=== PATIENT | male | born 1955 | race Caucasian/White ===

== ENCOUNTER 2017-06-09 06:05 | Day surgery (SDC) | payer BC ==
--- NOTE | 2017-05-26 08:06 | HP ---
PREOPERATIVE HISTORY AND PHYSICAL: DATE OF ADMISSION: 06/09/17 ATTENDING PHYSICIAN: Dr. Welsh * (DICTATED BY KEYSHA CRUZ) CHIEF COMPLAINT: Left forefoot pain. HISTORY OF PRESENT ILLNESS: Mr. Yung is a 62-year-old gentleman who is quite active, who has been followed by Dr. Welsh for left first MTP joint pain. He states that he has been followed by Podiatry who has tried orthotics with the patient which did not seem to relieve his pain. He has had no history of gout. He just had progressively worsening pain and stiffness in this area. He elects to proceed with MTP joint fusion at this point. PAST MEDICAL HISTORY: Vertigo. PAST SURGICAL HISTORY: Cholecystectomy, laminectomy, two left knee arthroscopies, one right knee reconstruction, tonsillectomy, right wrist surgery x2 and right shoulder distal clavicle excision. He does report nausea with anesthesia. CURRENT MEDICATIONS: 1. Meclizine 25 mg one half to 1 tab p.o. t.i.d. p.r.n. 2. Patanol 0.1% drops 1 to 2 drops in each eye every day 1 to 2 times as needed. 3. Fish oil 1000 mg 3 tabs daily. 4. Aspirin 325 mg as needed for pain. 5. Vitamin D 5000 units 1 p.o. daily. 6. 500 mg 2 tabs p.o. daily. 7. Aciphex 20 mg 1 p.o. daily p.r.n. 8. Voltaren p.r.n. 9. Milk thistle supplement. 10. L-arginine supplement. ALLERGIES: No known drug allergies. FAMILY HISTORY: Positive for heart disease in his father, hypertension in his father. SOCIAL HISTORY: He lives with his spouse. 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 He has never smoked. He consumes an average of 3 alcoholic beverages per week. He exercises rarely. REVIEW OF SYSTEMS: Constitutional: Negative for recent hospitalizations, fevers, chills, night sweats, or unexplained weight loss. Head: Negative for headache, lightheadedness, or balance problems, changes to his vision or hearing , sore throat, runny nose, cough or cold. Cardiovascular: Negative for chest or arm pain with exertion, history of heart attack, heart murmur, heart palpitations, high blood pressure, embolism or deep vein thrombosis. Respiratory: Negative for chronic cough, shortness of breath with exertion, asthma, or COPD. Gastrointestinal: Negative for heartburn, nausea, vomiting, diarrhea, constipation, or GERD. Genitourinary: Negative for nighttime urination, frequency of urination, urinary tract infections, or kidney problems. Musculoskeletal: Negative for chronic back pain or recent fracture. Skin: Negative for rashes, lesions, lumps, or sores. Neurologic: Negative for seizure, stroke, epilepsy, depression, or anxiety. Endocrine: Negative for diabetes or thyroid problems. Hematology: Negative for easy bleeding, bruising, or anemia. PHYSICAL EXAMINATION GENERAL: He is a well-developed, well-nourished pleasant male in no acute distress at rest. He is alert and oriented x3 with appropriate mood and affect. VITAL SIGNS: The patient is 5 feet 10 inches, 215 pounds. Blood pressure 126/ 70, pulse of 72, respirations 18, temperature 98.3. HEENT: Normocephalic, atraumatic. His hearing and vision are grossly intact. NECK: His trachea is midline. RESPIRATORY: Lungs are clear to auscultation bilaterally. No wheezes, rales, or rhonchi. CARDIOVASCULAR: Regular rate and rhythm. No murmurs, rubs, or gallops. Normal S1, S2. ABDOMEN: Soft, nondistended, nontender. Normal bowel sounds. EXTREMITIES: Exam of the left lower extremity, skin is intact without abrasions or open wounds. He has normal hind foot alignment. He has a mild hallux valgus. He has very limited range of motion of the first MTP joint with about 15 degrees of dorsiflexion and diffuse tenderness throughout the joint. Sensation to light touch is intact. He has a normal vascular exam. IMAGING: Three views of the left foot were reviewed and show end-stage arthritic changes to the left first MTP joint. IMPRESSION: Left foot hallux rigidus. PLAN: The patient is to undergo left foot first metatarsophalangeal joint fusion by Dr. Welsh on 06/09/17. The risks, benefits, and postoperative course were discussed with the patient at length and he would like to proceed. A prescription for oxycodone was sent to his pharmacy for postoperative pain. All of his questions were answered to his full satisfaction. KEYSHA CRUZ [id number]/[facility] #: [id number] [place]
[~2017-06-09 06:05] MED LIST: Buffered Lidocaine 0.9% SYRIN* 5 ML/SYR SYRINGE INTRADERM ONE; Metoclopramide TAB* 10 MG PO ONE
[2017-06-09] MEDS ORDERED: Buffered Lidocaine 0.9% SYRIN* 5 ML/SYR SYRINGE ONE (06:32)
[2017-06-09] MEDS ORDERED: Metoclopramide TAB* 10 MG ONE (06:32)
[2017-06-09] MEDS ORDERED: ceFAZolin 2 GM PREMIX (*) 2 GM/50 ML BAG IVPB ONE (06:32)
[2017-06-09] MEDS ORDERED: Dexamethasone IV* 4 MG/ML 1 ML (4 MG) ONE (07:10)
[2017-06-09] MEDS ORDERED: Ondansetron INJ* 2 MG/ML VIAL ONE ×2 (07:10→10:30)
[2017-06-09] MEDS ORDERED: Ketorolac INJ* 30 MG/ML 1 ML VIAL ONE (07:10)
[2017-06-09] MEDS ORDERED: Propofol* 10 MG/ML 20 ML BTL IV PUSH ONE ×2 (07:10→08:05)
[2017-06-09] MEDS ORDERED: Midazolam* 1 MG/ML 10 ML VIAL (10 MG) ONE (07:10)
[2017-06-09] MEDS ORDERED: fentaNYL* 50 MCG/ML 2 ML VIAL (100 MCG VIAL) ONE (07:10)
[2017-06-09] MEDS ORDERED: Lidocaine 2% PF * 5 ML VIAL ONE ×2 (07:10→07:15)
[2017-06-09] MEDS ORDERED: KETAMINE HCL* 50 MG/ML 10 ML VIAL ONE (07:10)
[2017-06-09] MEDS ORDERED: Bupivacaine 0.5% SDV PF* 30 ML VIAL ONE (07:11)
[2017-06-09] MEDS ORDERED: Lidocaine 2% W/EPI 1:100,000* 20 ML MDV ONE (07:11)
[2017-06-09] MEDS ORDERED: Famotidine IV* 10 MG/ML 2 ML (20 mg) IV SLOW PU ONE (07:21)
[2017-06-09] MEDS ORDERED: Famotidine IV* 10 MG/ML 2 ML (20 mg) ONE (07:22)
[2017-06-09] MEDS ORDERED: Ondansetron INJ* 2 MG/ML VIAL IV PRN (07:22)
[2017-06-09] MEDS ORDERED: fentaNYL* 50 MCG/ML 2 ML VIAL (100 MCG VIAL) IV PRN (07:22)
[2017-06-09] MEDS ORDERED: Labetalol IV* 5 MG/ML 20 ML VIAL ONE (08:44)
[2017-06-09] MEDS ORDERED: oxyCODONE/Acetamin 5/325 MG* TAB ONE ×2 (09:57→09:58)
[2017-06-09] MEDS: oxyCODONE/Acetamin 5/325 MG* TAB PO PRN ×2 (09:59→10:00)
[2017-06-09 10:23] VITALS: BP 129/87
--- NOTE | 2017-06-10 06:40 | OP ---
DATE OF OPERATION: 06/09/17 - [facility] DATE OF : 55 SURGEON: Rush Welsh MD COMMUNITY NUTRITION EDUCATOR: Maria A Nam PA-C ANESTHESIOLOGIST: El Landin MD ANESTHESIA: MAC PRE-OP DIAGNOSIS: Left first metatarsophalangeal joint arthritis. POST-OP DIAGNOSIS: Left first metatarsophalangeal joint arthritis. OPERATIVE PROCEDURE: Left first metatarsophalangeal joint fusion DESCRIPTION OF PROCEDURE: The patient was taken to the operating room where a longitudinal incision was made over the dorsum of 1st MTP joint. Mediolateral flap was raised to allow visualization of the joint and the joint was prepared for arthrodesis using a small power jade. We also removed the dorsal osteophytes with the rongeur. We pinned the joint in neutral position obliquely with a 4.0 mm partially threaded cannulated screw and fixed this dorsally with a Y-shaped rigid F3 plate. X-rays intraoperatively showed satisfactory alignment and position of the hardware. We then irrigated thoroughly, closing dorsally closely with 2-0 Vicryl, 3-0 nylon for the skin and a compression dressing applied. [id number]/[facility] #: [id number] MTDD
== END 2017-06-09 11:12 | disposition home or self-care (01) ==
LOC: OR 06:05
PROVIDERS: ATTEND Orthopaedic Surgery
DX: M13.872 Other specified arthritis, left ankle and foot (principal); M20.22 Hallux rigidus, left foot; R42 Dizziness and giddiness; M54.5 Low back pain; M54.2 Cervicalgia
CPT/HCPCS: A9270-GY; C1713; C1776; J0690; J1100; J1885; J2250; J2405; J2704; J3010